=== PATIENT | male | born 1945 | race African-American/Black ===

== ENCOUNTER 2022-01-24 06:23 | Emergency (ER) | payer MEDICARE ==
[2022-01-24 07:05] LABS: #Basophils 0.2 thou/uL (0.0-0.2); #Eosinphils 0.2 thou/uL (0.0-0.7); #Lymphocytes 1.1 thou/uL (1.20-3.40); #Monocytes 0.7 thou/uL (0.11-0.59); #Neutrophils 8.4 thou/uL (1.40-6.50); %Basophils 1.7 % (0.0-1.0); %Eosinophils 2.1 % (0.0-10.0); %Lymphocytes 10.5 % (21.0-51.0); %Monocytes 6.2 % (0.0-10.0); %Neutrophils 79.5 % (42.0-75.0); Hemoglobin 13.1 g/dL (14.0-18.0); Mean Corpuscular HGB CONC 32.4 g/dL (32.0-36.0); Mean Corpuscular Volume 89.4 fL (78.0-98.0); Mean Platelet Volume 8.9 fL (7.4-10.4); Platelet Count 188 thou/uL (130-400); RBC Distribution Width 14.8 % (11.5-14.5); Red Blood Cell (RBC) Count 4.52 mill/uL (4.70-6.10); White Blood Cell (WBC) Count 10.6 thou/uL (4.8-10.8)
[2022-01-24 07:08] LABS: ALT (SGPT) 23 U/L (8-55); AST (SGOT) 28 U/L (5-34); Albumin 3.9 g/dL (3.4-4.8); Alkaline Phosphatase 87 U/L (40-110); Anion Gap 16 mmol/L (10-20); BUN (Urea Nitrogen) 22 mg/dL (8.4-25.7); Bilirubin, Total 0.4 mg/dL (0.2-1.2); Calc. Creatinine Clearance 0 mL/min (70-130); Calcium 9.7 mg/dL (7.8-10.44); Carbon Dioxide 27 mmol/L (23-31); Chloride 101 mmol/L (98-107); Estimated GFR 38; Globulin 3.5 g/dL (2.4-3.5); Glucose 83 mg/dL (83-110); Potassium 4.1 mmol/L (3.5-5.1); Protein, Total 7.4 g/dL (5.8-8.1); Sodium 140 mmol/L (136-145)
[2022-01-24] MEDS ORDERED: Azithromycin 500 MG VIAL ONE (07:27)
[2022-01-24] MEDS ORDERED: Albuterol Sulfate 2.5 mg/0.5 ml Neb ONE (07:27)
[2022-01-24] MEDS ORDERED: Ipratropium Bromide 2.5 ml Neb ONE (07:27)
== END 2022-01-24 08:26 ==
LOC: BURERS 06:23
DX: J44.1 Chronic obstructive pulmonary disease with (acute) exacerbation (principal); I11.0 Hypertensive heart disease with heart failure; I50.9 Heart failure, unspecified; E11.9 Type 2 diabetes mellitus without complications; I25.10 Atherosclerotic heart disease of native coronary artery without angina pectoris; Z87.891 Personal history of nicotine dependence
CPT/HCPCS: 71045; 80053; 83880; 84484; 85025; 93005; 96365; J0456; J7611

== ENCOUNTER 2022-03-12 14:15 | Outpatient (CLI) | payer MEDICARE | END 2022-03-12 14:16 | disposition home or self-care (01) | LOC: BURRAD 14:15 | PROVIDERS: ATTEND Family Medicine | DX: R29.6 Repeated falls (principal); M47.816 Spondylosis without myelopathy or radiculopathy, lumbar region; M41.9 Scoliosis, unspecified; K59.00 Constipation, unspecified; W19.XXXA Unspecified fall, initial encounter | CPT/HCPCS: 72100; 72170 ==

== ENCOUNTER 2022-03-12 14:54 | Emergency (ER) | payer MEDICARE ==
[2022-03-12] MEDS ORDERED: Morphine 4 MG/ML VIAL ONE (15:10)
== END 2022-03-12 18:00 ==
LOC: BURERS 14:54
DX: M54.50 Low back pain, unspecified (principal); M19.90 Unspecified osteoarthritis, unspecified site; J44.9 Chronic obstructive pulmonary disease, unspecified; I50.9 Heart failure, unspecified; I25.10 Atherosclerotic heart disease of native coronary artery without angina pectoris; E11.39 Type 2 diabetes mellitus with other diabetic ophthalmic complication; H42 Glaucoma in diseases classified elsewhere; I25.2 Old myocardial infarction; W17.89XA Other fall from one level to another, initial encounter; Z87.891 Personal history of nicotine dependence
CPT/HCPCS: 71045; 72100; 72128; 72131; 72170; 72192; 96372; J2270